=== PATIENT | female | born 1990 | race Caucasian/White ===

== ENCOUNTER 2022-06-21 15:59 | Emergency (ER) | payer BC, OTHER ==
[~2022-06-21] VITALS: Ht 165.1 cm; Wt 68.0 kg
[2022-06-21] MEDS ORDERED: HYDROCODONE/APAP 5-325MG TABLET ONE (16:58)
[2022-06-21] MEDS ORDERED: HYDROCODONE/APAP 5-325MG TABLET PO ONE (17:00)
[2022-06-21] MEDS ORDERED: HYDR-3972 PO (18:30)
--- NOTE | 2022-06-21 18:34 | NUR ---
PT WAS EVALUATED BY DR GIBSON. PT WAS D/C'd TO HOME. D/C INSTRUCTIONS GIVEN TO THE PT BY DR GIBSON.
[2022-06-21 18:58] VITALS: BP 131/75
== END 2022-06-21 18:59 | disposition home or self-care (01) ==
LOC: ER 15:59
DX: M25.572 Pain in left ankle and joints of left foot (principal); M54.50 Low back pain, unspecified; W01.0XXA Fall on same level from slipping, tripping and stumbling without subsequent striking against object, initial encounter; Y92.89 Other specified places as the place of occurrence of the external cause
CPT/HCPCS: 72170; 73610; A4663